=== PATIENT | male | born 1955 | race Caucasian/White ===

== ENCOUNTER 2021-02-17 14:39 | Inpatient (IN) | payer OTHER ==
[~2021-02-17] VITALS: Ht 172.7 cm; Wt 72.6 kg
[~2021-02-17 14:39] MED LIST: AMOX500C2 PO; ASPI-1005 PO; ATOR40TA69 PO; CLOP75TA14 PO; LEVO500T90 PO; LISI5TAB21 PO; METF-444 PO
[2021-02-17 14:45] VITALS: BP 162/86
[2021-02-17] MEDS ORDERED: CLINDAMYCIN IVPB 600MG/50ML 50 ML IV SCH (15:00)
[2021-02-17] MEDS ORDERED: CLINDAMYCIN IVPB 600MG/50ML 50 ML IV ONE (15:09)
[2021-02-17 17:01] LABS: BASOPHILS % (AUTO) 0.3 % (0.0-5.0); EOSINOPHILS % (AUTO) 0.3 % (0.0-8.0); HEMATOCRIT 36.1 % (42-54); LYMPHOCYTES % (AUTO) 5.4 % (21.0-51.0); MEAN CORPUSCULAR HEMOGLOBIN 28.1 pg (27.0-33.0); MEAN CORPUSCULAR VOLUME 90.7 fL (79-99); NEUTROPHILS % (AUTO) 91.1 % (40.0-77.0); RED BLOOD CELL COUNT(AUTO) 3.98 MIL/uL (4.50-6.20); RED CELL DISTRIBUTION WIDTH 13.2 % (11.0-15.5); WHITE BLOOD COUNT (AUTO) 20.1 K/uL (4.8-10.8)
[2021-02-17 17:08] LABS: PLATELET COUNT (AUTO) 813 K/uL (130-400)
[2021-02-17 17:12] LABS: CREATININE 1.1 mg/dL (0.5-1.5); POTASSIUM 5.1 mmol/L (3.5-5.1)
[2021-02-17] MEDS ORDERED: 0.9%NACL 1000ML 1,000 ML IV ONE ×2 (17:14→17:30)
[2021-02-17 17:21] LABS: ALBUMIN 1.8 g/dL (3.5-5.0); BILIRUBIN,TOTAL 0.4 mg/dL (0.2-1.0); TOTAL PROTEIN, SERUM 8.6 g/dL (6.0-8.3)
[2021-02-17 17:28] LABS: CRP QUANTITATIVE 227.2 mg/L (0.00-9.0)
[2021-02-17 17:52] LABS: APPEARANCE,URINE TURBID (CLEAR); BILIRUBIN,URINE SMALL (NEGATIVE); COLOR,URINE YELLOW (YELLOW); GLUCOSE, URINE (UA) 100 mg/dL (NEGATIVE); KETONES,URINE 15 mg/dL (NEGATIVE); LEUKOCYTE ESTERASE ,URINE LARGE (NEGATIVE); NITRATE,URINE POSITIVE (NEGATIVE); OCCULT BLOOD,URINE LARGE (NEGATIVE); PH,URINE 6.5 (5.0-8.0); PROTEIN,URINE >=300 mg/dL (NEGATIVE); UROBILINOGEN,URINE 0.2 mg/dL (0.2-1.0)
[2021-02-17 17:55] LABS: BACTERIA,URINE Many /HPF (None Seen); MUCUS,URINE Rare LPF (None Seen); SQUAMOUS EPITHELIAL CELL,UR Rare /HPF (0-2); WBC,URINE >100 /HPF (0-1)
[2021-02-17] MEDS ORDERED: CEFTRIAXONE 1G VIAL IVP ONE (18:00)
[2021-02-17 18:40] VITALS: BP 12/83
[2021-02-17] MEDS ORDERED: LACTATED RINGERS 1000ML 1,000 ML IV SCH (19:30)
[2021-02-17] MEDS ORDERED: LACTATED RINGERS 1000ML 2,052 ML IV ONE (19:30)
[2021-02-17] MEDS ORDERED: VANCOMYCIN PROTOCOL PER PHARMACY IV PRN (19:30)
[2021-02-17] MEDS ORDERED: VANCOMYCIN 1.5GM/NS 250ML IV ONE ×2 (20:00)
[2021-02-17] MEDS ORDERED: 0.9%NACL 50ML 50 ML IV ONE (20:42)
[2021-02-17] MEDS: CEFEPIME HCL 2 GM VIAL IVP SCH (20:45)
[2021-02-17] MEDS: CARVEDILOL 3.125 MG TABLET PO SCH (21:00)
[2021-02-17] MEDS: ATORVASTATIN 40 MG TABLET PO SCH (21:00)
[2021-02-17] MEDS ORDERED: INSULIN HUMULIN R 100 UNIT/ML 3ML SQ SCH (21:00)
[2021-02-17 21:07] LABS: INR 1.29 (0.85-1.15); PROTHROMBIN TIME 13.7 SEC (9.6-11.6)
[2021-02-17 21:09] LABS: PARTIAL THROMBOPLASTIN TIME 28.2 SEC (26.3-35.5)
[2021-02-18] VITALS (10 sets, daily range): BP systolic 106–139; BP diastolic 57–88
[2021-02-18] MEDS ORDERED: GLUCAGON 1MG KIT 1 MG ML IM PRN (02:00)
[2021-02-18] MEDS ORDERED: DEXTROSE 50%-WATER 50 ML DISP.SYRIN IV PRN (02:00)
[2021-02-18 06:37] LABS: BASOPHILS % (AUTO) 0.3 % (0.0-5.0); EOSINOPHILS % (AUTO) 0.2 % (0.0-8.0); HEMATOCRIT 31.3 % (42-54); LYMPHOCYTES % (AUTO) 9.3 % (21.0-51.0); MEAN CORPUSCULAR HEMOGLOBIN 28.4 pg (27.0-33.0); MEAN CORPUSCULAR HGB CONC 30.4 g/dL (32.0-36.0); MEAN CORPUSCULAR VOLUME 93.4 fL (79-99); MONOCYTES % (AUTO) 4.2 % (3.0-13.0); NEUTROPHILS % (AUTO) 85.2 % (40.0-77.0); PLATELET COUNT (AUTO) 685 K/uL (130-400); RED BLOOD CELL COUNT(AUTO) 3.35 MIL/uL (4.50-6.20); RED CELL DISTRIBUTION WIDTH 13.4 % (11.0-15.5); WHITE BLOOD COUNT (AUTO) 13.2 K/uL (4.8-10.8)
[2021-02-18 07:10] LABS: MAGNESIUM 2.3 mg/dL (1.80-2.40); PHOSPHORUS 3.9 mg/dL (2.5-4.9); POTASSIUM 4.4 mmol/L (3.5-5.1)
[2021-02-18] MEDS: INSULIN R PO SS1/2 SQ SCH ×5 (07:30→20:16)
[2021-02-18] MEDS: CEFEPIME HCL 2 GM VIAL IVP SCH (07:30)
[2021-02-18 07:37] LABS: HEMOGLOBIN A1C 8.2 % (4.0-6.0)
[2021-02-18] MEDS: 0.9% NACL 250ML 250 ML IV SCH ×2 (09:00→20:16)
[2021-02-18] MEDS: FAMOTIDINE 20MG TAB PO SCH (09:00)
[2021-02-18] MEDS ORDERED: LISINOPRIL 10 MG TABLET PO SCH (09:00)
[2021-02-18] MEDS: CARVEDILOL 3.125 MG TABLET PO SCH (09:00)
[2021-02-18] MEDS: VANCOMYCIN KIT 1 GM/250 ML IV.KIT IV SCH ×2 (09:00→20:16)
[2021-02-18 12:05] LABS: HEMATOCRIT 34.4 % (42-54); MEAN CORPUSCULAR HEMOGLOBIN 28.7 pg (27.0-33.0); MEAN CORPUSCULAR HGB CONC 30.2 g/dL (32.0-36.0); MEAN CORPUSCULAR VOLUME 94.8 fL (79-99); PLATELET COUNT (AUTO) 651 K/uL (130-400); RED BLOOD CELL COUNT(AUTO) 3.63 MIL/uL (4.50-6.20); RED CELL DISTRIBUTION WIDTH 13.5 % (11.0-15.5); WHITE BLOOD COUNT (AUTO) 10.9 K/uL (4.8-10.8)
[2021-02-18 12:27] LABS: EOSINOPHILS % (MANUAL) 3 % (1-6); LYMPHOCYTES % (MANUAL) 10 % (22-44); MAN.DIFF COMMENT-IMPRESSION MANUAL DIFFERENTIAL; MONOCYTES % (MANUAL) 6 % (2-9); PLATELET MORPHOLOGY COMMENT MARKED INCREASE; SEGMENTED NEUTROPHILS % 81 % (40-70)
[2021-02-18] MEDS ORDERED: INSULIN GLARGINE 100 UNITS/ML 10 ML VIAL SQ SCH (12:30)
[2021-02-18 13:11] LABS: ERYTHROCYTE SEDIMENTATION RATE 136 MM/HR (0-20)
[2021-02-18] MEDS: LACTATED RINGERS 1000ML 1,000 ML IV SCH (14:12)
[2021-02-18 15:44] LABS: CREATININE 0.6 mg/dL (0.5-1.5); POTASSIUM 4.2 mmol/L (3.5-5.1)
[2021-02-18 15:44] LABS: ABG BASE EXCESS 4.6 mmol/L (-2.0-3.0); ABG HCO3 28.5 mmol/L (21.0-28.0); ABG OXYGEN SATURATION 97.7 % (95.0-99.0); ABG PCO2 40 mmHg (35-48)
[2021-02-18 15:49] LABS: ALBUMIN 0.9 g/dL (3.5-5.0); BILIRUBIN,TOTAL 0.2 mg/dL (0.2-1.0); TOTAL PROTEIN, SERUM 4.5 g/dL (6.0-8.3)
[2021-02-18] MEDS ORDERED: PANTOPRAZOLE 40 MG/VIAL IVP SCH (16:00)
[2021-02-18] MEDS ORDERED: THIAMINE HCL 100 MG/ML 2ML VIAL IVP SCH (16:00)
[2021-02-18] MEDS ORDERED: FOLIC ACID 1 MG TABLET PO SCH (16:00)
[2021-02-18] MEDS: DOXYCYCLINE 100MG+NS 250ML IV SCH (16:04)
[2021-02-18] MEDS: MEROPENEM 1 GM VIAL IVP SCH (16:04)
[2021-02-18] MEDS: 0.9% NACL 250ML IVPB SCH (16:05)
[2021-02-18] MEDS: ATORVASTATIN 40 MG TABLET PO SCH (20:16)
[2021-02-18 21:26] LABS: APPEARANCE BODY FLUID TURBID (CLEAR); COLOR,BODY FLUID DARK YELLOW (LT YELLOW); SPECIMENTYPE,BODY FLUID ASPIRATE
[2021-02-18 21:27] LABS: BODY FLUID WBC 157500 /cu. mm.; TOTAL VOLUME,BODY FLUID 7 mL
[2021-02-18 21:28] LABS: BODY FLUID RBC 5250 /cu. mm.
[2021-02-19] VITALS (21 sets, daily range): BP systolic 120–174; BP diastolic 61–92
[2021-02-19] MEDS: MEROPENEM 1 GM VIAL IVP SCH ×3 (00:36→16:23)
[2021-02-19] MEDS: LACTATED RINGERS 1000ML 1,000 ML IV SCH ×2 (00:37→13:03)
[2021-02-19 02:11] LABS: CRYSTALS, SYNOVIAL FLUID SEE SEPARATE REPORT
[2021-02-19] MEDS: DOXYCYCLINE 100MG+NS 250ML IV SCH ×2 (03:13→16:23)
[2021-02-19] MEDS: 0.9% NACL 250ML IVPB SCH ×2 (03:14→16:23)
[2021-02-19 03:47] LABS: HEMATOCRIT 27.3 % (42-54); MEAN CORPUSCULAR HEMOGLOBIN 28.1 pg (27.0-33.0); MEAN CORPUSCULAR HGB CONC 30.4 g/dL (32.0-36.0); MEAN CORPUSCULAR VOLUME 92.5 fL (79-99); RED BLOOD CELL COUNT(AUTO) 2.95 MIL/uL (4.50-6.20); RED CELL DISTRIBUTION WIDTH 13.7 % (11.0-15.5); WHITE BLOOD COUNT (AUTO) 8.4 K/uL (4.8-10.8)
[2021-02-19 03:58] LABS: CREATININE 0.9 mg/dL (0.5-1.5); POTASSIUM 3.6 mmol/L (3.5-5.1)
[2021-02-19] MEDS: INSULIN R PO SS1/2 SQ SCH ×4 (06:03→20:28)
[2021-02-19] MEDS: VANCOMYCIN KIT 1 GM/250 ML IV.KIT IV SCH ×2 (08:22→20:27)
[2021-02-19] MEDS: 0.9% NACL 250ML 250 ML IV SCH ×2 (08:22→20:27)
[2021-02-19] MEDS: FAMOTIDINE 20MG TAB PO SCH (08:23)
[2021-02-19] MEDS: PANTOPRAZOLE 40 MG/VIAL IVP SCH (08:23)
[2021-02-19] MEDS ORDERED: LISINOPRIL 10 MG TABLET PO SCH (12:30)
[2021-02-19] MEDS: LISINOPRIL 10 MG TABLET PO SCH (13:02)
[2021-02-19] MEDS ORDERED: AMLODIPINE 5 MG TAB PO ONE (17:00)
[2021-02-19] MEDS ORDERED: AMLODIPINE 5 MG TAB ONE (17:22)
[2021-02-19] MEDS: HYDRALAZINE 20MG/ML VIAL IV PRN (18:18)
[2021-02-19] MEDS: ATORVASTATIN 40 MG TABLET PO SCH (20:27)
[2021-02-19] MEDS: BALSAM PERU/CASTOR OIL 60 GM TUBE TP SCH (20:28)
[2021-02-20] VITALS (25 sets, daily range): BP systolic 114–161; BP diastolic 67–87
[2021-02-20] MEDS: MEROPENEM 1 GM VIAL IVP SCH ×2 (01:22→05:36)
[2021-02-20 03:44] LABS: HEMATOCRIT 28.2 % (42-54); MEAN CORPUSCULAR HEMOGLOBIN 28.7 pg (27.0-33.0); MEAN CORPUSCULAR HGB CONC 31.2 g/dL (32.0-36.0); MEAN CORPUSCULAR VOLUME 91.9 fL (79-99); RED BLOOD CELL COUNT(AUTO) 3.07 MIL/uL (4.50-6.20); RED CELL DISTRIBUTION WIDTH 13.4 % (11.0-15.5); WHITE BLOOD COUNT (AUTO) 8.5 K/uL (4.8-10.8)
[2021-02-20 03:47] LABS: CREATININE 0.7 mg/dL (0.5-1.5); POTASSIUM 3.5 mmol/L (3.5-5.1)
[2021-02-20] MEDS: DOXYCYCLINE 100MG+NS 250ML IV SCH ×2 (04:00→21:02)
[2021-02-20] MEDS: 0.9% NACL 250ML IVPB SCH ×2 (04:01→16:00)
[2021-02-20] MEDS: INSULIN R PO SS1/2 SQ SCH ×3 (05:37→21:11)
[2021-02-20] MEDS: BALSAM PERU/CASTOR OIL 60 GM TUBE TP SCH ×3 (09:00→21:04)
[2021-02-20] MEDS: LISINOPRIL 10 MG TABLET PO SCH (10:54)
[2021-02-20] MEDS: PANTOPRAZOLE 40 MG/VIAL IVP SCH (10:54)
[2021-02-20] MEDS: VANCOMYCIN KIT 1 GM/250 ML IV.KIT IV SCH (10:54)
[2021-02-20] MEDS: 0.9% NACL 250ML 250 ML IV SCH ×2 (10:54→21:02)
[2021-02-20] MEDS: FAMOTIDINE 20MG TAB PO SCH (10:54)
[2021-02-20] MEDS ORDERED: 0.9%NACL 1000ML 1,000 ML IV ONE (13:25)
[2021-02-20] MEDS ORDERED: CEFTRIAXONE 1G VIAL ONE (13:40)
[2021-02-20] MEDS: CEFTRIAXONE 2GM VIAL IVP SCH (13:50)
[2021-02-20] MEDS ORDERED: CEFAZOLIN SODIUM 1 GM VIAL ONE (15:25)
[2021-02-20] MEDS ORDERED: SUCCINYLCHOLINE CHLORIDE 20 MG/ML 10 ML VIAL ONE (15:32)
[2021-02-20] MEDS ORDERED: LIDOCAINE PF 100MG/5ML (2%) SYRINGE 5ML ONE (15:32)
[2021-02-20] MEDS ORDERED: DEXAMETHASONE SOD PHOSPHATE 10MG/ML 1ML VIAL ONE (15:33)
[2021-02-20] MEDS ORDERED: NEOSTIGMINE 5MG/5ML SYR IV ONE (15:33)
[2021-02-20] MEDS ORDERED: ROCURONIUM 10MG/1ML SYR 10 MG/ML ML ONE (15:33)
[2021-02-20] MEDS ORDERED: GLYCOPYRROLATE 1 MG/5 ML SYRINGE ONE (15:33)
[2021-02-20] MEDS ORDERED: PROPOFOL 10 MG/ML 20ML VIAL IV ONE (15:33)
[2021-02-20] MEDS ORDERED: ONDANSETRON 4MG INJ ONE (15:33)
[2021-02-20] MEDS ORDERED: MIDAZOLAM HCL 1 MG/ML 2ML VIAL ONE (15:33)
[2021-02-20] MEDS ORDERED: FENTANYL CITRATE PF 50 MCG/1 ML 2ML VIAL ONE ×2 (15:34→16:27)
[2021-02-20] MEDS ORDERED: MEPERIDINE-PF 25 MG/ML SYG ONE (16:28)
[2021-02-20] MEDS ORDERED: FENTANYL CITRATE PF 50 MCG/1 ML 5ML AMP IV ONE (16:29)
[2021-02-20] MEDS: ATORVASTATIN 40 MG TABLET PO SCH (21:05)
[2021-02-21] VITALS (16 sets, daily range): BP systolic 89–160; BP diastolic 47–87
[2021-02-21] MEDS: BALSAM PERU/CASTOR OIL 60 GM TUBE TP SCH ×3 (06:41→22:00)
[2021-02-21] MEDS: INSULIN R PO SS1/2 SQ SCH ×4 (06:42→20:57)
[2021-02-21 06:51] LABS: BASOPHILS % (AUTO) 0.2 % (0.0-5.0); HEMATOCRIT 30.6 % (42-54); LYMPHOCYTES % (AUTO) 6.7 % (21.0-51.0); MEAN CORPUSCULAR HEMOGLOBIN 27.8 pg (27.0-33.0); MEAN CORPUSCULAR HGB CONC 30.4 g/dL (32.0-36.0); MEAN CORPUSCULAR VOLUME 91.3 fL (79-99); MONOCYTES % (AUTO) 1.3 % (3.0-13.0); NEUTROPHILS % (AUTO) 91.3 % (40.0-77.0); PLATELET COUNT (AUTO) 501 K/uL (130-400); RED BLOOD CELL COUNT(AUTO) 3.35 MIL/uL (4.50-6.20); RED CELL DISTRIBUTION WIDTH 13.2 % (11.0-15.5); WHITE BLOOD COUNT (AUTO) 9.9 K/uL (4.8-10.8)
[2021-02-21 07:10] LABS: CREATININE 0.6 mg/dL (0.5-1.5); MAGNESIUM 1.9 mg/dL (1.80-2.40); POTASSIUM 4.1 mmol/L (3.5-5.1)
[2021-02-21] MEDS: 0.9% NACL 250ML 250 ML IV SCH ×4 (09:00→22:29)
[2021-02-21] MEDS ORDERED: DOXYCYCLINE 100MG+NS 250ML IV SCH (09:00)
[2021-02-21] MEDS: FAMOTIDINE 20MG TAB PO SCH (10:24)
[2021-02-21] MEDS: DOXYCYCLINE 100MG+NS 250ML IV SCH ×2 (10:25→20:25)
[2021-02-21] MEDS: PANTOPRAZOLE 40 MG/VIAL IVP SCH (10:25)
[2021-02-21] MEDS: LISINOPRIL 10 MG TABLET PO SCH (10:25)
[2021-02-21] MEDS: CEFTRIAXONE 2GM VIAL IVP SCH (12:30)
[2021-02-21] MEDS ORDERED: CEFTRIAXONE 1G VIAL ONE (16:15)
[2021-02-21] MEDS: ATORVASTATIN 40 MG TABLET PO SCH (20:27)
[2021-02-21 21:09] LABS: BASOPHILS % (AUTO) 0.3 % (0.0-5.0); EOSINOPHILS % (AUTO) 0.2 % (0.0-8.0); LYMPHOCYTES % (AUTO) 22.6 % (21.0-51.0); MEAN CORPUSCULAR HEMOGLOBIN 28.4 pg (27.0-33.0); MEAN CORPUSCULAR HGB CONC 29.4 g/dL (32.0-36.0); MEAN CORPUSCULAR VOLUME 96.7 fL (79-99); MONOCYTES % (AUTO) 2.6 % (3.0-13.0); NEUTROPHILS % (AUTO) 68.8 % (40.0-77.0); NUCLEATED RED BLOOD CELLS 0.2 % (0.0-0.19); PLATELET COUNT (AUTO) 543 K/uL (130-400); RED BLOOD CELL COUNT(AUTO) 3.31 MIL/uL (4.50-6.20); RED CELL DISTRIBUTION WIDTH 13.4 % (11.0-15.5); WHITE BLOOD COUNT (AUTO) 15.4 K/uL (4.8-10.8)
[2021-02-21 21:20] LABS: ALBUMIN 1.3 g/dL (3.5-5.0); BILIRUBIN,TOTAL 0.2 mg/dL (0.2-1.0); CREATININE 0.9 mg/dL (0.5-1.5); POTASSIUM 3.6 mmol/L (3.5-5.1); TOTAL PROTEIN, SERUM 6.1 g/dL (6.0-8.3)
[2021-02-21 21:21] LABS: INR 1.27 (0.85-1.15); PROTHROMBIN TIME 13.5 SEC (9.6-11.6)
[2021-02-21 21:22] LABS: PARTIAL THROMBOPLASTIN TIME 28.8 SEC (26.3-35.5)
[2021-02-21] MEDS ORDERED: FENTANYL 2500MCG+NS 250ML 250 ML IV SCH (22:00)
[2021-02-21] MEDS ORDERED: PROPOFOL 1000 MG/100 ML 100 ML IV ONE (22:18)
[2021-02-21 22:37] LABS: MAGNESIUM 2.4 mg/dL (1.80-2.40)
[2021-02-21 22:55] LABS: ABG BASE EXCESS -0.1 mmol/L (-2.0-3.0); ABG OXYGEN SATURATION 99.5 % (95.0-99.0); ABG PCO2 42 mmHg (35-48)
[2021-02-22] VITALS (80 sets, daily range): BP systolic 73–156; BP diastolic 33–85
[2021-02-22 04:16] LABS: CREATININE 0.7 mg/dL (0.5-1.5); MAGNESIUM 1.9 mg/dL (1.80-2.40); PHOSPHORUS 2.4 mg/dL (2.5-4.9); POTASSIUM 3.1 mmol/L (3.5-5.1)
[2021-02-22] MEDS: MAGNESIUM 2GM PREMIX 50ML 50 ML IV PRN (05:56)
[2021-02-22] MEDS: BALSAM PERU/CASTOR OIL 60 GM TUBE TP SCH ×3 (06:19→23:15)
[2021-02-22] MEDS: INSULIN R PO SS1/2 SQ SCH ×4 (06:36→23:22)
[2021-02-22] MEDS: FAMOTIDINE 20MG TAB PO SCH (09:00)
[2021-02-22] MEDS: LISINOPRIL 10 MG TABLET PO SCH (09:00)
[2021-02-22] MEDS: PANTOPRAZOLE 40 MG/VIAL IVP SCH (09:50)
[2021-02-22] MEDS: DOXYCYCLINE 100MG+NS 250ML IV SCH ×2 (09:50→20:19)
[2021-02-22] MEDS: 0.9% NACL 250ML 250 ML IV SCH ×4 (09:51→20:20)
[2021-02-22] MEDS: 1/2 NS 1000ML 1,000 ML IV SCH (09:55)
[2021-02-22 10:03] LABS: ABG BASE EXCESS 5.8 mmol/L (-2.0-3.0); ABG HCO3 30.8 mmol/L (21.0-28.0); ABG OXYGEN SATURATION 95.8 % (95.0-99.0); ABG PCO2 47 mmHg (35-48)
[2021-02-22] MEDS: POTASSIUM CHLORIDE 20MEQ/100ML 100 ML IV PRN ×2 (10:12→14:35)
[2021-02-22] MEDS: PROPOFOL 1000 MG/100 ML IV PRN ×2 (10:37→14:36)
[2021-02-22] MEDS ORDERED: ENOXAPARIN SODIUM 40 MG/0.4 ML SYRINGE SQ SCH (11:00)
[2021-02-22] MEDS ORDERED: NOREPINEPHRIN 4MG/NS 250ML 250 ML IV SCH (13:00)
[2021-02-22] MEDS ORDERED: CEFTRIAXONE 2GM VIAL ONE (14:32)
[2021-02-22] MEDS: CEFTRIAXONE 2GM VIAL IVP SCH (14:33)
[2021-02-22] MEDS ORDERED: DEXMEDETOMIDINE 400MCG/NS100ML IV SCH (16:00)
[2021-02-22] MEDS: ATORVASTATIN 40 MG TABLET PO SCH (20:19)
[2021-02-22] MEDS: ENOXAPARIN SODIUM 30 MG/0.3 ML SQ SCH (23:15)
[2021-02-23] VITALS (65 sets, daily range): BP systolic 72–174; BP diastolic 40–102
[2021-02-23] MEDS: 1/2 NS 1000ML 1,000 ML IV SCH (02:10)
[2021-02-23 03:38] LABS: BASOPHILS % (AUTO) 0.4 % (0.0-5.0); EOSINOPHILS % (AUTO) 0.9 % (0.0-8.0); LYMPHOCYTES % (AUTO) 14.5 % (21.0-51.0); MEAN CORPUSCULAR HEMOGLOBIN 28.6 pg (27.0-33.0); MEAN CORPUSCULAR HGB CONC 30.7 g/dL (32.0-36.0); MEAN CORPUSCULAR VOLUME 93.2 fL (79-99); MONOCYTES % (AUTO) 4.5 % (3.0-13.0); NEUTROPHILS % (AUTO) 79.1 % (40.0-77.0); PLATELET COUNT (AUTO) 466 K/uL (130-400); RED BLOOD CELL COUNT(AUTO) 3.11 MIL/uL (4.50-6.20); RED CELL DISTRIBUTION WIDTH 13.8 % (11.0-15.5); WHITE BLOOD COUNT (AUTO) 14.1 K/uL (4.8-10.8)
[2021-02-23 04:02] LABS: ALBUMIN 1.3 g/dL (3.5-5.0); BILIRUBIN,TOTAL 0.3 mg/dL (0.2-1.0); CREATININE 0.8 mg/dL (0.5-1.5); MAGNESIUM 2.2 mg/dL (1.80-2.40); PHOSPHORUS 2.4 mg/dL (2.5-4.9); POTASSIUM 3.7 mmol/L (3.5-5.1); TOTAL PROTEIN, SERUM 5.6 g/dL (6.0-8.3)
[2021-02-23] MEDS: BALSAM PERU/CASTOR OIL 60 GM TUBE TP SCH ×3 (06:00→21:44)
[2021-02-23 06:07] LABS: ABG BASE EXCESS 2.5 mmol/L (-2.0-3.0); ABG HCO3 25.5 mmol/L (21.0-28.0); ABG OXYGEN SATURATION 96.5 % (95.0-99.0); ABG PCO2 34 mmHg (35-48)
[2021-02-23] MEDS: INSULIN R PO SS1/2 SQ SCH ×4 (06:41→22:01)
[2021-02-23] MEDS: POTASSIUM CHLORIDE 10% ELIXIR 20 MEQ/15 ML UDCUP PO PRN ×2 (06:47→08:51)
[2021-02-23] MEDS: 0.9% NACL 250ML 250 ML IV SCH ×2 (08:14→21:43)
[2021-02-23] MEDS: DOXYCYCLINE 100MG+NS 250ML IV SCH ×2 (08:14→21:43)
[2021-02-23] MEDS: PANTOPRAZOLE 40 MG/VIAL IVP SCH (08:14)
[2021-02-23] MEDS: FAMOTIDINE 20MG TAB PO SCH (08:15)
[2021-02-23] MEDS: ENOXAPARIN SODIUM 30 MG/0.3 ML SQ SCH (11:15)
[2021-02-23] MEDS: LACTATED RINGERS 1000ML 1,000 ML IV SCH (11:16)
[2021-02-23] MEDS: ASPIRIN 81MG CHEW TAB PO SCH (12:00)
[2021-02-23] MEDS ORDERED: CEFTRIAXONE 2GM VIAL IVP SCH (14:30)
[2021-02-23 17:06] LABS: ABG BASE EXCESS -5.6 mmol/L (-2.0-3.0); ABG OXYGEN SATURATION 61.2 % (95.0-99.0); ABG PCO2 53 mmHg (35-48)
[2021-02-23 17:11] LABS: BASOPHILS % (AUTO) 0.3 % (0.0-5.0); EOSINOPHILS % (AUTO) 0.3 % (0.0-8.0); HEMATOCRIT 32.5 % (42-54); LYMPHOCYTES % (AUTO) 16.5 % (21.0-51.0); MEAN CORPUSCULAR HEMOGLOBIN 28.1 pg (27.0-33.0); MEAN CORPUSCULAR HGB CONC 28.9 g/dL (32.0-36.0); MONOCYTES % (AUTO) 3.4 % (3.0-13.0); NEUTROPHILS % (AUTO) 77.1 % (40.0-77.0); NUCLEATED RED BLOOD CELLS 0.1 % (0.0-0.19); PLATELET COUNT (AUTO) 460 K/uL (130-400); RED BLOOD CELL COUNT(AUTO) 3.35 MIL/uL (4.50-6.20); RED CELL DISTRIBUTION WIDTH 14.1 % (11.0-15.5); WHITE BLOOD COUNT (AUTO) 26.7 K/uL (4.8-10.8)
[2021-02-23] MEDS ORDERED: AMIODARONE 900MG VIAL 900 MG in DEXTROSE 5%-WATER 500 ML IV SCH (17:30)
[2021-02-23] MEDS ORDERED: CLOPIDOGREL 75MG TAB PO SCH (17:30)
[2021-02-23] MEDS: PROPOFOL 1000 MG/100 ML IV PRN (17:34)
[2021-02-23 17:36] LABS: ALBUMIN 1.4 g/dL (3.5-5.0); BILIRUBIN,TOTAL 0.2 mg/dL (0.2-1.0); CREATININE 0.9 mg/dL (0.5-1.5); POTASSIUM 4.9 mmol/L (3.5-5.1); TOTAL PROTEIN, SERUM 6.2 g/dL (6.0-8.3)
[2021-02-23] MEDS: AMIODARONE 900MG VIAL 900 MG in DEXTROSE 5%-WATER 500 ML IV SCH (18:43)
[2021-02-23] MEDS: ATORVASTATIN 40 MG TABLET PO SCH (21:43)
[2021-02-24] VITALS (52 sets, daily range): BP systolic 106–165; BP diastolic 49–78
[2021-02-24] MEDS: ENOXAPARIN SODIUM 30 MG/0.3 ML SQ SCH ×3 (01:10→23:20)
[2021-02-24] MEDS: LACTATED RINGERS 1000ML 1,000 ML IV SCH ×2 (01:10→11:27)
[2021-02-24 03:36] LABS: BASOPHILS % (AUTO) 0.3 % (0.0-5.0); EOSINOPHILS % (AUTO) 0.5 % (0.0-8.0); HEMATOCRIT 26.5 % (42-54); LYMPHOCYTES % (AUTO) 11.1 % (21.0-51.0); MEAN CORPUSCULAR HEMOGLOBIN 28.2 pg (27.0-33.0); MEAN CORPUSCULAR HGB CONC 29.8 g/dL (32.0-36.0); MEAN CORPUSCULAR VOLUME 94.6 fL (79-99); MONOCYTES % (AUTO) 3.5 % (3.0-13.0); PLATELET COUNT (AUTO) 475 K/uL (130-400); RED CELL DISTRIBUTION WIDTH 14.1 % (11.0-15.5); WHITE BLOOD COUNT (AUTO) 21.9 K/uL (4.8-10.8)
[2021-02-24 04:18] LABS: ALBUMIN 1.2 g/dL (3.5-5.0); BILIRUBIN,TOTAL 0.4 mg/dL (0.2-1.0); CREATININE 1.1 mg/dL (0.5-1.5); MAGNESIUM 2.1 mg/dL (1.80-2.40); PHOSPHORUS 2.9 mg/dL (2.5-4.9); POTASSIUM 4.3 mmol/L (3.5-5.1); TOTAL PROTEIN, SERUM 5.4 g/dL (6.0-8.3)
[2021-02-24] MEDS: BALSAM PERU/CASTOR OIL 60 GM TUBE TP SCH ×3 (05:01→22:23)
[2021-02-24] MEDS: INSULIN R PO SS1/2 SQ SCH ×4 (06:15→20:38)
[2021-02-24] MEDS: AMIODARONE 900MG VIAL 900 MG in DEXTROSE 5%-WATER 500 ML IV SCH (08:07)
[2021-02-24] MEDS: FAMOTIDINE 20MG VIAL IV SCH (09:12)
[2021-02-24] MEDS: PANTOPRAZOLE 40 MG/VIAL IVP SCH (09:12)
[2021-02-24] MEDS: DOXYCYCLINE 100MG+NS 250ML IV SCH ×2 (09:12→20:35)
[2021-02-24] MEDS: 0.9% NACL 250ML 250 ML IV SCH ×2 (09:12→20:35)
[2021-02-24] MEDS: PROPOFOL 1000 MG/100 ML IV PRN (09:20)
[2021-02-24] MEDS ORDERED: ACETAMINOPHEN 325 MG/10.15ML UDCUP PO PRN (10:30)
[2021-02-24] MEDS: CEFTRIAXONE 2GM VIAL IVP SCH ×2 (11:26→20:35)
[2021-02-24] MEDS: HYDROCORTISONE SOD SUCCINATE 100 MG/2 ML VIAL IV SCH ×3 (11:26→23:21)
[2021-02-24] MEDS: ASPIRIN 81MG CHEW TAB PO SCH (11:26)
[2021-02-24 11:37] LABS: ABG BASE EXCESS 2.6 mmol/L (-2.0-3.0); ABG HCO3 24.9 mmol/L (21.0-28.0); ABG OXYGEN SATURATION 98.7 % (95.0-99.0); ABG PCO2 30 mmHg (35-48)
[2021-02-24] MEDS: ATORVASTATIN 40 MG TABLET PO SCH (20:39)
[2021-02-25] VITALS (48 sets, daily range): BP systolic 135–193; BP diastolic 62–94
[2021-02-25] MEDS: LACTATED RINGERS 1000ML 1,000 ML IV SCH ×2 (02:09→15:58)
[2021-02-25 03:35] LABS: BASOPHILS % (AUTO) 0.2 % (0.0-5.0); EOSINOPHILS % (AUTO) 0.1 % (0.0-8.0); HEMATOCRIT 24.4 % (42-54); LYMPHOCYTES % (AUTO) 6.3 % (21.0-51.0); MEAN CORPUSCULAR HEMOGLOBIN 27.9 pg (27.0-33.0); MEAN CORPUSCULAR HGB CONC 30.3 g/dL (32.0-36.0); MEAN CORPUSCULAR VOLUME 92.1 fL (79-99); MONOCYTES % (AUTO) 2.4 % (3.0-13.0); NEUTROPHILS % (AUTO) 89.8 % (40.0-77.0); PLATELET COUNT (AUTO) 410 K/uL (130-400); RED BLOOD CELL COUNT(AUTO) 2.65 MIL/uL (4.50-6.20); RED CELL DISTRIBUTION WIDTH 14.3 % (11.0-15.5); WHITE BLOOD COUNT (AUTO) 21.3 K/uL (4.8-10.8)
[2021-02-25 03:50] LABS: ABG BASE EXCESS 0.5 mmol/L (-2.0-3.0); ABG HCO3 23.1 mmol/L (21.0-28.0); ABG PCO2 29 mmHg (35-48)
[2021-02-25 03:51] LABS: ALBUMIN 1.1 g/dL (3.5-5.0); BILIRUBIN,TOTAL 0.3 mg/dL (0.2-1.0); CREATININE 1.1 mg/dL (0.5-1.5); POTASSIUM 3.9 mmol/L (3.5-5.1); TOTAL PROTEIN, SERUM 5.5 g/dL (6.0-8.3)
[2021-02-25] MEDS: PROPOFOL 1000 MG/100 ML IV PRN (03:55)
[2021-02-25] MEDS: BALSAM PERU/CASTOR OIL 60 GM TUBE TP SCH ×3 (05:59→21:40)
[2021-02-25] MEDS: HYDROCORTISONE SOD SUCCINATE 100 MG/2 ML VIAL IV SCH ×3 (05:59→17:16)
[2021-02-25] MEDS: INSULIN R PO SS1/2 SQ SCH ×4 (06:09→22:14)
[2021-02-25] MEDS: PANTOPRAZOLE 40 MG/VIAL IVP SCH (08:13)
[2021-02-25] MEDS: DOXYCYCLINE 100MG+NS 250ML IV SCH ×2 (08:13→21:39)
[2021-02-25] MEDS: 0.9% NACL 250ML 250 ML IV SCH ×2 (08:13→21:39)
[2021-02-25] MEDS: ASPIRIN 81MG CHEW TAB PO SCH (08:14)
[2021-02-25] MEDS: FAMOTIDINE 20MG VIAL IV SCH (08:14)
[2021-02-25] MEDS: CEFTRIAXONE 2GM VIAL IVP SCH (08:16)
[2021-02-25] MEDS: AMIODARONE 900MG VIAL 900 MG in DEXTROSE 5%-WATER 500 ML IV SCH (09:13)
[2021-02-25] MEDS: ENOXAPARIN SODIUM 30 MG/0.3 ML SQ SCH (10:25)
[2021-02-25] MEDS ORDERED: ZOSYN 3.375GM+NS 50ML 3.38 GM in 0.9%NACL 50ML 50 ML IV SCH (14:00)
[2021-02-25] MEDS: ZOSYN 3.375GM +NS 50ML IV SCH ×2 (14:14→21:40)
[2021-02-25] MEDS: 0.9%NACL 50ML 50 ML IV SCH ×2 (14:15→21:40)
[2021-02-25] MEDS: ATORVASTATIN 40 MG TABLET PO SCH (21:39)
[2021-02-26] VITALS (36 sets, daily range): BP systolic 107–176; BP diastolic 57–94
[2021-02-26 04:26] LABS: BASOPHILS % (AUTO) 0.1 % (0.0-5.0); EOSINOPHILS % (AUTO) 0.3 % (0.0-8.0); HEMATOCRIT 26.3 % (42-54); LYMPHOCYTES % (AUTO) 7.4 % (21.0-51.0); MEAN CORPUSCULAR HEMOGLOBIN 27.9 pg (27.0-33.0); MEAN CORPUSCULAR HGB CONC 29.3 g/dL (32.0-36.0); MEAN CORPUSCULAR VOLUME 95.3 fL (79-99); MONOCYTES % (AUTO) 3.5 % (3.0-13.0); NEUTROPHILS % (AUTO) 87.4 % (40.0-77.0); PLATELET COUNT (AUTO) 493 K/uL (130-400); RED BLOOD CELL COUNT(AUTO) 2.76 MIL/uL (4.50-6.20); RED CELL DISTRIBUTION WIDTH 14.4 % (11.0-15.5); WHITE BLOOD COUNT (AUTO) 20.5 K/uL (4.8-10.8)
[2021-02-26 04:36] LABS: ALBUMIN 1.2 g/dL (3.5-5.0); BILIRUBIN,TOTAL 0.3 mg/dL (0.2-1.0); POTASSIUM 3.4 mmol/L (3.5-5.1); TOTAL PROTEIN, SERUM 5.9 g/dL (6.0-8.3)
[2021-02-26] MEDS: POTASSIUM CHLORIDE 20MEQ/100ML 100 ML IV PRN (05:04)
[2021-02-26] MEDS: ENOXAPARIN SODIUM 30 MG/0.3 ML SQ SCH ×3 (05:04→23:50)
[2021-02-26] MEDS: LACTATED RINGERS 1000ML 1,000 ML IV SCH ×2 (05:04→10:59)
[2021-02-26] MEDS: HYDROCORTISONE SOD SUCCINATE 100 MG/2 ML VIAL IV SCH ×4 (05:07→21:05)
[2021-02-26] MEDS: ZOSYN 3.375GM +NS 50ML IV SCH ×3 (05:07→21:05)
[2021-02-26] MEDS: 0.9%NACL 50ML 50 ML IV SCH ×3 (05:07→21:05)
[2021-02-26] MEDS: BALSAM PERU/CASTOR OIL 60 GM TUBE TP SCH ×3 (05:08→21:05)
[2021-02-26] MEDS: INSULIN R PO SS1/2 SQ SCH ×4 (05:17→20:59)
[2021-02-26 08:11] LABS: POTASSIUM 3.6 mmol/L (3.5-5.1)
[2021-02-26] MEDS: ASPIRIN 81MG CHEW TAB PO SCH (08:27)
[2021-02-26] MEDS: PANTOPRAZOLE 40 MG/VIAL IVP SCH (08:30)
[2021-02-26] MEDS: FAMOTIDINE 20MG VIAL IV SCH (08:35)
[2021-02-26] MEDS: DOXYCYCLINE 100MG+NS 250ML IV SCH ×2 (08:37→20:48)
[2021-02-26] MEDS: 0.9% NACL 250ML 250 ML IV SCH ×2 (08:37→20:49)
[2021-02-26] MEDS: POTASSIUM CHLORIDE 10% ELIXIR 20 MEQ/15 ML UDCUP PO PRN (09:06)
[2021-02-26] MEDS ORDERED: FUROSEMIDE 20MG VIAL IV SCH ×3 (10:00→14:00)
[2021-02-26] MEDS ORDERED: ALBUMIN (HUMAN) 25% 100 ML IV ONE (10:54)
[2021-02-26] MEDS ORDERED: TAMSULOSIN HCL 0.4 MG CAP.ER.24H ONE (12:36)
[2021-02-26] MEDS ORDERED: TAMSULOSIN HCL 0.4 MG CAP.ER.24H PO SCH (13:00)
[2021-02-26] MEDS ORDERED: ALBUMIN (HUMAN) 25% 50 ML IV SCH (14:00)
[2021-02-26] MEDS: AMIODARONE 900MG VIAL 900 MG in DEXTROSE 5%-WATER 500 ML IV SCH (16:17)
[2021-02-26] MEDS: ALBUMIN (HUMAN) 25% 50 ML IV SCH (20:47)
[2021-02-26] MEDS: FUROSEMIDE 20MG VIAL IV SCH (20:48)
[2021-02-26] MEDS: ATORVASTATIN 40 MG TABLET PO SCH (20:50)
[2021-02-27] VITALS (44 sets, daily range): BP systolic 130–193; BP diastolic 58–107
[2021-02-27] MEDS: FUROSEMIDE 20MG VIAL IV SCH (05:00)
[2021-02-27] MEDS: ZOSYN 3.375GM +NS 50ML IV SCH ×3 (05:02→22:03)
[2021-02-27] MEDS: 0.9%NACL 50ML 50 ML IV SCH ×3 (05:02→22:03)
[2021-02-27] MEDS: ALBUMIN (HUMAN) 25% 50 ML IV SCH (05:02)
[2021-02-27] MEDS: HYDROCORTISONE SOD SUCCINATE 100 MG/2 ML VIAL IV SCH ×3 (05:03→22:03)
[2021-02-27] MEDS: BALSAM PERU/CASTOR OIL 60 GM TUBE TP SCH ×3 (05:05→22:04)
[2021-02-27] MEDS: PANTOPRAZOLE 40 MG/VIAL IVP SCH (07:42)
[2021-02-27] MEDS: DOXYCYCLINE 100MG+NS 250ML IV SCH ×2 (07:42→20:55)
[2021-02-27] MEDS: 0.9% NACL 250ML 250 ML IV SCH ×2 (07:42→20:56)
[2021-02-27] MEDS: FAMOTIDINE 20MG VIAL IV SCH (07:42)
[2021-02-27] MEDS: ASPIRIN 81MG CHEW TAB PO SCH (07:43)
[2021-02-27] MEDS: INSULIN R PO SS1/2 SQ SCH ×2 (07:44→11:44)
[2021-02-27 07:49] LABS: HEMATOCRIT 24.9 % (42-54); MEAN CORPUSCULAR HGB CONC 29.3 g/dL (32.0-36.0); MEAN CORPUSCULAR VOLUME 95.4 fL (79-99); RED BLOOD CELL COUNT(AUTO) 2.61 MIL/uL (4.50-6.20); RED CELL DISTRIBUTION WIDTH 14.2 % (11.0-15.5); WHITE BLOOD COUNT (AUTO) 17.7 K/uL (4.8-10.8)
[2021-02-27 08:01] LABS: CREATININE 1.1 mg/dL (0.5-1.5); POTASSIUM 3.2 mmol/L (3.5-5.1)
[2021-02-27] MEDS: POTASSIUM CHLORIDE 10% ELIXIR 20 MEQ/15 ML UDCUP PO PRN ×3 (08:12→17:20)
[2021-02-27] MEDS: POTASSIUM CHLORIDE 20MEQ/100ML 100 ML IV PRN ×3 (08:15→17:21)
[2021-02-27] MEDS: HYDRALAZINE 20MG/ML VIAL IV PRN ×3 (09:00→22:06)
[2021-02-27] MEDS: AMIODARONE 200 MG TABLET PO SCH (09:49)
[2021-02-27] MEDS ORDERED: AMIODARONE 200 MG TABLET PO SCH (10:00)
[2021-02-27] MEDS: ENOXAPARIN SODIUM 30 MG/0.3 ML SQ SCH ×2 (11:37→22:05)
[2021-02-27] MEDS ORDERED: LACTULOSE 20 GM/30 ML UDCUP PO PRN (15:30)
[2021-02-27] MEDS: INSULIN HUMULIN R 100 UNIT/ML 3ML SQ SCH ×2 (16:45→21:00)
[2021-02-27 17:50] LABS: ABG BASE EXCESS 2.5 mmol/L (-2.0-3.0); ABG HCO3 26.5 mmol/L (21.0-28.0); ABG PCO2 39 mmHg (35-48)
[2021-02-27] MEDS ORDERED: COMPOUND IV MISC 1 EACH IVSOLN MISC PRN (19:30)
[2021-02-27] MEDS: LACTATED RINGERS 1000ML 1,000 ML IV SCH ×2 (20:54→21:55)
[2021-02-27] MEDS: IRON SUCROSE COMPLEX 300 MG in 0.9%NACL 50ML 50 ML IV SCH (20:55)
[2021-02-27] MEDS: ATORVASTATIN 40 MG TABLET PO SCH (20:56)
[2021-02-27] MEDS ORDERED: EPOETIN ALFA-EPBX (NON-ESRD) 10,000 UNIT/ML VIAL SQ SCH (21:00)
[2021-02-28] VITALS (19 sets, daily range): BP systolic 134–180; BP diastolic 59–102
[2021-02-28 03:50] LABS: BASOPHILS % (AUTO) 0.2 % (0.0-5.0); EOSINOPHILS % (AUTO) 0.6 % (0.0-8.0); HEMATOCRIT 27.5 % (42-54); LYMPHOCYTES % (AUTO) 3.9 % (21.0-51.0); MEAN CORPUSCULAR HEMOGLOBIN 28.3 pg (27.0-33.0); MEAN CORPUSCULAR HGB CONC 29.1 g/dL (32.0-36.0); MEAN CORPUSCULAR VOLUME 97.2 fL (79-99); MONOCYTES % (AUTO) 2.9 % (3.0-13.0); NEUTROPHILS % (AUTO) 91.2 % (40.0-77.0); PLATELET COUNT (AUTO) 507 K/uL (130-400); RED BLOOD CELL COUNT(AUTO) 2.83 MIL/uL (4.50-6.20); RED CELL DISTRIBUTION WIDTH 14.3 % (11.0-15.5); WHITE BLOOD COUNT (AUTO) 28.7 K/uL (4.8-10.8)
[2021-02-28 04:02] LABS: % IRON SATURATION 93.2 % (30-44)
[2021-02-28 04:29] LABS: ALBUMIN 1.9 g/dL (3.5-5.0); CREATININE 0.8 mg/dL (0.5-1.5); POTASSIUM 3.4 mmol/L (3.5-5.1)
[2021-02-28] MEDS: ZOSYN 3.375GM +NS 50ML IV SCH ×3 (05:01→21:21)
[2021-02-28] MEDS: 0.9%NACL 50ML 50 ML IV SCH ×3 (05:02→21:23)
[2021-02-28] MEDS: POTASSIUM CHLORIDE 20MEQ/100ML 100 ML IV PRN ×3 (05:02→18:20)
[2021-02-28] MEDS: HYDROCORTISONE SOD SUCCINATE 100 MG/2 ML VIAL IV SCH ×3 (05:02→21:21)
[2021-02-28] MEDS: BALSAM PERU/CASTOR OIL 60 GM TUBE TP SCH ×3 (05:03→21:22)
[2021-02-28] MEDS: INSULIN HUMULIN R 100 UNIT/ML 3ML SQ SCH ×5 (05:30→23:31)
[2021-02-28] MEDS: IRON SUCROSE COMPLEX 300 MG in 0.9%NACL 50ML 50 ML IV SCH (09:00)
[2021-02-28] MEDS: POTASSIUM CHLORIDE 10% ELIXIR 20 MEQ/15 ML UDCUP PO PRN ×2 (10:44→18:19)
[2021-02-28] MEDS: ASPIRIN 81MG CHEW TAB PO SCH (10:45)
[2021-02-28] MEDS: ENOXAPARIN SODIUM 30 MG/0.3 ML SQ SCH ×2 (10:45→21:22)
[2021-02-28] MEDS: DOXYCYCLINE 100MG+NS 250ML IV SCH ×2 (10:46→21:22)
[2021-02-28] MEDS: AMIODARONE 200 MG TABLET PO SCH (10:46)
[2021-02-28] MEDS: PANTOPRAZOLE 40 MG/VIAL IVP SCH (10:46)
[2021-02-28] MEDS: 0.9% NACL 250ML 250 ML IV SCH ×2 (10:46→21:22)
[2021-02-28] MEDS: HYDRALAZINE 20MG/ML VIAL IV PRN (10:47)
[2021-02-28] MEDS: DEXTROSE 5%-WATER 1,000 ML IV SCH (11:04)
[2021-02-28 14:10] LABS: MAGNESIUM 1.7 mg/dL (1.80-2.40); POTASSIUM 3.8 mmol/L (3.5-5.1)
[2021-02-28] MEDS: MAGNESIUM 2GM PREMIX 50ML 50 ML IV PRN ×2 (14:14→15:53)
[2021-02-28 17:57] LABS: MAGNESIUM 2.4 mg/dL (1.80-2.40); POTASSIUM 3.7 mmol/L (3.5-5.1)
[2021-02-28] MEDS: ALBUTEROL 0.083% 2.5 MG/3 ML INH IH SCH ×2 (18:39→22:23)
[2021-02-28] MEDS: ATORVASTATIN 40 MG TABLET PO SCH (21:21)
[2021-03-01] VITALS (11 sets, daily range): BP systolic 121–167; BP diastolic 62–87
[2021-03-01] MEDS: DEXTROSE 5%-WATER 1,000 ML IV SCH ×3 (00:37→23:07)
[2021-03-01] MEDS: ALBUTEROL 0.083% 2.5 MG/3 ML INH IH SCH ×4 (01:27→22:18)
[2021-03-01 03:52] LABS: BASOPHILS % (AUTO) 0.2 % (0.0-5.0); EOSINOPHILS % (AUTO) 0.2 % (0.0-8.0); LYMPHOCYTES % (AUTO) 5.7 % (21.0-51.0); MEAN CORPUSCULAR HEMOGLOBIN 28.3 pg (27.0-33.0); MEAN CORPUSCULAR VOLUME 94.2 fL (79-99); MONOCYTES % (AUTO) 2.7 % (3.0-13.0); NEUTROPHILS % (AUTO) 90.3 % (40.0-77.0); PLATELET COUNT (AUTO) 486 K/uL (130-400); RED BLOOD CELL COUNT(AUTO) 2.76 MIL/uL (4.50-6.20); RED CELL DISTRIBUTION WIDTH 14.4 % (11.0-15.5); WHITE BLOOD COUNT (AUTO) 28.2 K/uL (4.8-10.8)
[2021-03-01 03:55] LABS: CREATININE 0.7 mg/dL (0.5-1.5); MAGNESIUM 2.2 mg/dL (1.80-2.40); POTASSIUM 3.2 mmol/L (3.5-5.1)
[2021-03-01] MEDS: POTASSIUM CHLORIDE 10% ELIXIR 20 MEQ/15 ML UDCUP PO PRN ×4 (04:00→23:51)
[2021-03-01] MEDS: POTASSIUM CHLORIDE 20MEQ/100ML 100 ML IV PRN (04:01)
[2021-03-01] MEDS: HYDROCORTISONE SOD SUCCINATE 100 MG/2 ML VIAL IV SCH ×3 (05:06→23:05)
[2021-03-01] MEDS: ZOSYN 3.375GM +NS 50ML IV SCH ×3 (05:07→22:58)
[2021-03-01] MEDS: BALSAM PERU/CASTOR OIL 60 GM TUBE TP SCH ×3 (05:07→23:06)
[2021-03-01] MEDS: 0.9%NACL 50ML 50 ML IV SCH ×3 (05:07→23:06)
[2021-03-01] MEDS: INSULIN HUMULIN R 100 UNIT/ML 3ML SQ SCH ×4 (05:35→23:46)
[2021-03-01] MEDS ORDERED: POTASSIUM CHLORIDE 20MEQ/10ML 20 MEQ in DEXTROSE 5%-WATER 1,000 ML IV SCH (08:30)
[2021-03-01] MEDS: DOXYCYCLINE 100MG+NS 250ML IV SCH ×2 (08:48→20:50)
[2021-03-01] MEDS: 0.9% NACL 250ML 250 ML IV SCH ×2 (08:48→20:50)
[2021-03-01] MEDS: ASPIRIN 81MG CHEW TAB PO SCH (08:50)
[2021-03-01] MEDS: PANTOPRAZOLE 40 MG/VIAL IVP SCH (08:50)
[2021-03-01] MEDS: AMIODARONE 200 MG TABLET PO SCH (08:51)
[2021-03-01] MEDS ORDERED: AMLODIPINE 5 MG TAB PO SCH (09:00)
[2021-03-01] MEDS: IRON SUCROSE COMPLEX 300 MG in 0.9%NACL 50ML 50 ML IV SCH (12:13)
[2021-03-01] MEDS: CARVEDILOL 3.125 MG TABLET PO SCH ×2 (12:13→23:45)
[2021-03-01] MEDS: FOLIC ACID 5 MG/ML VIAL IV SCH (12:13)
[2021-03-01] MEDS: LOSARTAN 25 MG TABLET PO SCH (12:14)
[2021-03-01] MEDS: FUROSEMIDE 20MG VIAL IV SCH ×2 (12:14→17:41)
[2021-03-01] MEDS: ENOXAPARIN SODIUM 40 MG/0.4 ML SYRINGE SQ SCH (12:15)
[2021-03-01 20:25] LABS: MAGNESIUM 1.9 mg/dL (1.80-2.40); POTASSIUM 3.5 mmol/L (3.5-5.1)
[2021-03-01] MEDS: MAGNESIUM 2GM PREMIX 50ML 50 ML IV PRN (20:49)
[2021-03-01] MEDS: ATORVASTATIN 40 MG TABLET PO SCH (20:51)
[2021-03-02] VITALS (20 sets, daily range): BP systolic 106–184; BP diastolic 45–73
[2021-03-02] MEDS: ALBUTEROL 0.083% 2.5 MG/3 ML INH IH SCH ×6 (01:51→21:27)
[2021-03-02] MEDS: FUROSEMIDE 20MG VIAL IV SCH (02:05)
[2021-03-02] MEDS: POTASSIUM CHLORIDE 20MEQ/100ML 100 ML IV PRN ×4 (02:25→15:53)
[2021-03-02] MEDS ORDERED: PHARMACY COMMUNICATION MISC SCH (03:00)
[2021-03-02 03:53] LABS: BASOPHILS % (AUTO) 0.2 % (0.0-5.0); HEMATOCRIT 26.6 % (42-54); LYMPHOCYTES % (AUTO) 5.7 % (21.0-51.0); MEAN CORPUSCULAR HEMOGLOBIN 27.8 pg (27.0-33.0); MEAN CORPUSCULAR HGB CONC 29.3 g/dL (32.0-36.0); MEAN CORPUSCULAR VOLUME 94.7 fL (79-99); MONOCYTES % (AUTO) 2.7 % (3.0-13.0); NEUTROPHILS % (AUTO) 89.9 % (40.0-77.0); NUCLEATED RED BLOOD CELLS 0.1 % (0.0-0.19); PLATELET COUNT (AUTO) 459 K/uL (130-400); RED BLOOD CELL COUNT(AUTO) 2.81 MIL/uL (4.50-6.20); RED CELL DISTRIBUTION WIDTH 14.2 % (11.0-15.5); WHITE BLOOD COUNT (AUTO) 25.1 K/uL (4.8-10.8)
[2021-03-02 04:04] LABS: MAGNESIUM 2.3 mg/dL (1.80-2.40)
[2021-03-02] MEDS: POTASSIUM CHLORIDE 10% ELIXIR 20 MEQ/15 ML UDCUP PO PRN ×2 (04:27→21:22)
[2021-03-02] MEDS: BALSAM PERU/CASTOR OIL 60 GM TUBE TP SCH ×3 (06:00→21:17)
[2021-03-02] MEDS: ZOSYN 3.375GM +NS 50ML IV SCH ×3 (06:10→21:22)
[2021-03-02] MEDS: HYDROCORTISONE SOD SUCCINATE 100 MG/2 ML VIAL IV SCH ×3 (06:11→21:22)
[2021-03-02] MEDS: 0.9%NACL 50ML 50 ML IV SCH ×3 (06:11→21:22)
[2021-03-02] MEDS: INSULIN HUMULIN R 100 UNIT/ML 3ML SQ SCH ×3 (06:12→16:30)
[2021-03-02 07:34] LABS: ABG HCO3 34.7 mmol/L (21.0-28.0); ABG OXYGEN SATURATION 99.1 % (95.0-99.0); ABG PCO2 48 mmHg (35-48)
[2021-03-02] MEDS ORDERED: POTASSIUM CHLORIDE 20MEQ/100ML 100 ML IV SCH (08:00)
[2021-03-02] MEDS ORDERED: POTASSIUM CHLORIDE 20 MEQ/100 ML BAG IV SCH (08:00)
[2021-03-02] MEDS: DOXYCYCLINE 100MG+NS 250ML IV SCH ×2 (08:14→21:15)
[2021-03-02] MEDS: PANTOPRAZOLE 40 MG/VIAL IVP SCH (08:14)
[2021-03-02] MEDS: 0.9% NACL 250ML 250 ML IV SCH ×2 (08:15→21:16)
[2021-03-02] MEDS: FOLIC ACID 5 MG/ML VIAL IV SCH (08:18)
[2021-03-02] MEDS: AMIODARONE 200 MG TABLET PO SCH (08:18)
[2021-03-02] MEDS: CARVEDILOL 3.125 MG TABLET PO SCH ×2 (08:18→21:16)
[2021-03-02] MEDS: ENOXAPARIN SODIUM 40 MG/0.4 ML SYRINGE SQ SCH (08:20)
[2021-03-02] MEDS: ASPIRIN 81MG CHEW TAB PO SCH (08:21)
[2021-03-02] MEDS: LOSARTAN 25 MG TABLET PO SCH (08:30)
[2021-03-02] MEDS: DEXTROSE 5%-WATER 1,000 ML IV SCH (10:01)
[2021-03-02] MEDS: IRON SUCROSE COMPLEX 300 MG in 0.9%NACL 50ML 50 ML IV SCH (11:48)
[2021-03-02 12:48] LABS: MAGNESIUM 1.9 mg/dL (1.80-2.40); POTASSIUM 3.6 mmol/L (3.5-5.1)
[2021-03-02] MEDS: MAGNESIUM 2GM PREMIX 50ML 50 ML IV PRN (15:54)
[2021-03-02] MEDS: ATORVASTATIN 40 MG TABLET PO SCH (21:16)
[2021-03-03] VITALS (23 sets, daily range): BP systolic 139–190; BP diastolic 60–81
[2021-03-03] MEDS: INSULIN HUMULIN R 100 UNIT/ML 3ML SQ SCH ×5 (00:57→21:00)
[2021-03-03] MEDS: POTASSIUM CHLORIDE 20MEQ/100ML 100 ML IV PRN (01:00)
[2021-03-03] MEDS: ALBUTEROL 0.083% 2.5 MG/3 ML INH IH SCH ×6 (01:40→22:18)
[2021-03-03] MEDS: DEXTROSE 5%-WATER 1,000 ML IV SCH ×2 (03:02→17:00)
[2021-03-03 03:40] LABS: ABG BASE EXCESS 7.6 mmol/L (-2.0-3.0); ABG HCO3 31.5 mmol/L (21.0-28.0); ABG OXYGEN SATURATION 93.6 % (95.0-99.0); ABG PCO2 42 mmHg (35-48)
[2021-03-03 03:45] LABS: BASOPHILS % (AUTO) 0.1 % (0.0-5.0); EOSINOPHILS % (AUTO) 0.2 % (0.0-8.0); HEMATOCRIT 24.8 % (42-54); LYMPHOCYTES % (AUTO) 7.5 % (21.0-51.0); MEAN CORPUSCULAR HEMOGLOBIN 28.8 pg (27.0-33.0); MEAN CORPUSCULAR HGB CONC 30.2 g/dL (32.0-36.0); MEAN CORPUSCULAR VOLUME 95.4 fL (79-99); MONOCYTES % (AUTO) 3.3 % (3.0-13.0); NEUTROPHILS % (AUTO) 86.7 % (40.0-77.0); NUCLEATED RED BLOOD CELLS 0.3 % (0.0-0.19); PLATELET COUNT (AUTO) 458 K/uL (130-400); RED CELL DISTRIBUTION WIDTH 14.5 % (11.0-15.5); WHITE BLOOD COUNT (AUTO) 19.7 K/uL (4.8-10.8)
[2021-03-03 04:07] LABS: ALBUMIN 1.5 g/dL (3.5-5.0); BILIRUBIN,TOTAL 0.3 mg/dL (0.2-1.0); CREATININE 0.8 mg/dL (0.5-1.5); MAGNESIUM 1.9 mg/dL (1.80-2.40); POTASSIUM 3.8 mmol/L (3.5-5.1); TOTAL PROTEIN, SERUM 5.4 g/dL (6.0-8.3)
[2021-03-03] MEDS: ZOSYN 3.375GM +NS 50ML IV SCH ×3 (06:49→22:05)
[2021-03-03] MEDS: POTASSIUM CHLORIDE 10% ELIXIR 20 MEQ/15 ML UDCUP PO PRN ×2 (06:49→08:41)
[2021-03-03] MEDS: HYDROCORTISONE SOD SUCCINATE 100 MG/2 ML VIAL IV SCH ×3 (06:49→22:05)
[2021-03-03] MEDS: BALSAM PERU/CASTOR OIL 60 GM TUBE TP SCH ×3 (06:50→22:05)
[2021-03-03] MEDS: 0.9%NACL 50ML 50 ML IV SCH ×3 (06:50→22:05)
[2021-03-03] MEDS: DOXYCYCLINE 100MG+NS 250ML IV SCH ×2 (08:40→20:42)
[2021-03-03] MEDS: 0.9% NACL 250ML 250 ML IV SCH ×2 (08:40→20:42)
[2021-03-03] MEDS: PANTOPRAZOLE 40 MG/VIAL IVP SCH (08:41)
[2021-03-03] MEDS: MAGNESIUM 2GM PREMIX 50ML 50 ML IV PRN (08:41)
[2021-03-03] MEDS: LOSARTAN 25 MG TABLET PO SCH (08:42)
[2021-03-03] MEDS: CARVEDILOL 3.125 MG TABLET PO SCH ×2 (08:42→20:42)
[2021-03-03] MEDS: ASPIRIN 81MG CHEW TAB PO SCH (08:42)
[2021-03-03] MEDS: AMIODARONE 200 MG TABLET PO SCH (08:42)
[2021-03-03] MEDS: FOLIC ACID 5 MG/ML VIAL IV SCH (08:42)
[2021-03-03] MEDS: ENOXAPARIN SODIUM 80 MG/0.8 ML SQ SCH ×2 (08:43→20:42)
[2021-03-03] MEDS: ATORVASTATIN 40 MG TABLET PO SCH (20:42)
[2021-03-04] VITALS (25 sets, daily range): BP systolic 139–178; BP diastolic 55–100
[2021-03-04] MEDS: INSULIN HUMULIN R 100 UNIT/ML 3ML SQ SCH ×4 (01:40→16:44)
[2021-03-04] MEDS: ALBUTEROL 0.083% 2.5 MG/3 ML INH IH SCH ×6 (02:26→23:15)
[2021-03-04] MEDS: 0.9%NACL 50ML 50 ML IV SCH ×3 (05:02→22:19)
[2021-03-04] MEDS: ZOSYN 3.375GM +NS 50ML IV SCH ×3 (05:02→22:19)
[2021-03-04] MEDS: DEXTROSE 5%-WATER 1,000 ML IV SCH (05:02)
[2021-03-04] MEDS: HYDROCORTISONE SOD SUCCINATE 100 MG/2 ML VIAL IV SCH ×3 (05:02→21:00)
[2021-03-04 05:16] LABS: BASOPHILS % (AUTO) 0.1 % (0.0-5.0); EOSINOPHILS % (AUTO) 0.1 % (0.0-8.0); HEMATOCRIT 24.9 % (42-54); LYMPHOCYTES % (AUTO) 7.5 % (21.0-51.0); MEAN CORPUSCULAR HEMOGLOBIN 28.1 pg (27.0-33.0); MEAN CORPUSCULAR HGB CONC 30.1 g/dL (32.0-36.0); MEAN CORPUSCULAR VOLUME 93.3 fL (79-99); MONOCYTES % (AUTO) 3.1 % (3.0-13.0); NEUTROPHILS % (AUTO) 87.8 % (40.0-77.0); NUCLEATED RED BLOOD CELLS 0.4 % (0.0-0.19); PLATELET COUNT (AUTO) 469 K/uL (130-400); RED BLOOD CELL COUNT(AUTO) 2.67 MIL/uL (4.50-6.20); RED CELL DISTRIBUTION WIDTH 14.5 % (11.0-15.5); WHITE BLOOD COUNT (AUTO) 16.3 K/uL (4.8-10.8)
[2021-03-04 05:33] LABS: ALBUMIN 1.5 g/dL (3.5-5.0); BILIRUBIN,TOTAL 0.4 mg/dL (0.2-1.0); CREATININE 0.6 mg/dL (0.5-1.5); MAGNESIUM 1.8 mg/dL (1.80-2.40); TOTAL PROTEIN, SERUM 5.4 g/dL (6.0-8.3)
[2021-03-04 05:56] LABS: POTASSIUM 2.9 mmol/L (3.5-5.1)
[2021-03-04] MEDS: POTASSIUM CHLORIDE 20MEQ/100ML 100 ML IV PRN ×2 (06:06→06:49)
[2021-03-04] MEDS: BALSAM PERU/CASTOR OIL 60 GM TUBE TP SCH ×3 (06:48→21:13)
[2021-03-04 09:04] LABS: ABG BASE EXCESS 9.7 mmol/L (-2.0-3.0); ABG OXYGEN SATURATION 84.7 % (95.0-99.0); ABG PCO2 49 mmHg (35-48)
[2021-03-04] MEDS: PANTOPRAZOLE 40 MG/VIAL IVP SCH (09:10)
[2021-03-04] MEDS: 0.9% NACL 250ML 250 ML IV SCH ×2 (09:11→21:08)
[2021-03-04] MEDS: AMIODARONE 200 MG TABLET PO SCH (09:11)
[2021-03-04] MEDS: FOLIC ACID 5 MG/ML VIAL IV SCH (09:11)
[2021-03-04] MEDS: DOXYCYCLINE 100MG+NS 250ML IV SCH ×2 (09:11→21:08)
[2021-03-04] MEDS: ASPIRIN 81MG CHEW TAB PO SCH (09:13)
[2021-03-04] MEDS: CARVEDILOL 3.125 MG TABLET PO SCH ×2 (09:13→21:13)
[2021-03-04] MEDS: POTASSIUM CHLORIDE 10% ELIXIR 20 MEQ/15 ML UDCUP PO PRN ×4 (09:14→15:00)
[2021-03-04] MEDS: ENOXAPARIN SODIUM 80 MG/0.8 ML SQ SCH (09:14)
[2021-03-04] MEDS: LOSARTAN 25 MG TABLET PO SCH (09:16)
[2021-03-04] MEDS: MAGNESIUM 2GM PREMIX 50ML 50 ML IV PRN (09:17)
[2021-03-04] MEDS: HYDRALAZINE 20MG/ML VIAL IV PRN (10:10)
[2021-03-04] MEDS ORDERED: IOHEXOL-350 50ML VIAL IV ONE (12:40)
[2021-03-04] MEDS ORDERED: LORAZEPAM 2 MG/ML 1 ML VIAL IM PRN (18:30)
[2021-03-04] MEDS ORDERED: MORPHINE 2 MG SYG IVP PRN (18:30)
[2021-03-04] MEDS: ATORVASTATIN 40 MG TABLET PO SCH (21:13)
[2021-03-05] VITALS (17 sets, daily range): BP systolic 102–207; BP diastolic 45–88
[2021-03-05] MEDS: ALBUTEROL 0.083% 2.5 MG/3 ML INH IH SCH ×3 (01:22→10:14)
[2021-03-05] MEDS: HYDRALAZINE 20MG/ML VIAL IV PRN (05:43)
[2021-03-05] MEDS: BALSAM PERU/CASTOR OIL 60 GM TUBE TP SCH ×3 (05:44→20:56)
[2021-03-05] MEDS: INSULIN HUMULIN R 100 UNIT/ML 3ML SQ SCH ×3 (06:00→11:44)
[2021-03-05] MEDS: 0.9%NACL 50ML 50 ML IV SCH (06:05)
[2021-03-05] MEDS: ZOSYN 3.375GM +NS 50ML IV SCH (06:05)
[2021-03-05 07:25] LABS: MEAN CORPUSCULAR HEMOGLOBIN 28.3 pg (27.0-33.0); MEAN CORPUSCULAR HGB CONC 30.7 g/dL (32.0-36.0); MEAN CORPUSCULAR VOLUME 92.1 fL (79-99); NUCLEATED RED BLOOD CELLS 0.1 % (0.0-0.19); PLATELET COUNT (AUTO) 625 K/uL (130-400); RED BLOOD CELL COUNT(AUTO) 3.04 MIL/uL (4.50-6.20); RED CELL DISTRIBUTION WIDTH 14.6 % (11.0-15.5); WHITE BLOOD COUNT (AUTO) 20.5 K/uL (4.8-10.8)
[2021-03-05 07:38] LABS: CREATININE 0.8 mg/dL (0.5-1.5); POTASSIUM 3.2 mmol/L (3.5-5.1)
[2021-03-05] MEDS ORDERED: DEXTROSE 5%-WATER 1,000 ML IV SCH (08:00)
[2021-03-05] MEDS: DOXYCYCLINE 100MG+NS 250ML IV SCH (08:26)
[2021-03-05] MEDS: 0.9% NACL 250ML 250 ML IV SCH (08:26)
[2021-03-05 08:32] LABS: LYMPHOCYTES % (MANUAL) 12 % (22-44); MAN.DIFF COMMENT-IMPRESSION MANUAL DIFFERENTIAL; MONOCYTES % (MANUAL) 3 % (2-9); PLATELET MORPHOLOGY COMMENT MARKED INCREASE; SEGMENTED NEUTROPHILS % 85 % (40-70)
[2021-03-05] MEDS: PANTOPRAZOLE 40 MG/VIAL IVP SCH (08:34)
[2021-03-05] MEDS: HYDROCORTISONE SOD SUCCINATE 100 MG/2 ML VIAL IV SCH (08:43)
[2021-03-05] MEDS: FOLIC ACID 5 MG/ML VIAL IV SCH (08:48)
[2021-03-05] MEDS: LOSARTAN 25 MG TABLET PO SCH (08:50)
[2021-03-05] MEDS: AMIODARONE 200 MG TABLET PO SCH (08:50)
[2021-03-05] MEDS: CARVEDILOL 3.125 MG TABLET PO SCH (08:51)
[2021-03-05] MEDS: ASPIRIN 81MG CHEW TAB PO SCH (08:51)
[2021-03-05] MEDS: POTASSIUM CHLORIDE 10% ELIXIR 20 MEQ/15 ML UDCUP PO PRN (11:10)
[2021-03-05] MEDS ORDERED: HALOPERIDOL 1 MG TABLET PO PRN (13:00)
[2021-03-05] MEDS ORDERED: ONDANSETRON 4MG INJ IVP PRN (13:00)
[2021-03-05] MEDS ORDERED: ACETAMINOPHEN 650 MG SUPPOSITORY RC PRN (13:00)
[2021-03-05] MEDS ORDERED: ARTIFICAL TEARS SOL 15 ML OU PRN (13:00)
[2021-03-05] MEDS ORDERED: DEXAMETHASONE SOD PHOSPHATE 4 MG/ML 1ML VIAL IVP PRN (13:00)
[2021-03-05] MEDS ORDERED: SCOPOLAMINE HYDROBROMIDE 1 EACH ADH..PATCH TD SCH (13:00)
[2021-03-05] MEDS ORDERED: LORAZEPAM 2 MG/ML 1 ML VIAL IVP PRN (13:30)
[2021-03-06] VITALS: BP 138/58
[2021-03-06 04:00] VITALS: BP 132/64
[2021-03-06] MEDS: BALSAM PERU/CASTOR OIL 60 GM TUBE TP SCH (05:09)
[2021-03-06 08:29] VITALS: BP 123/42
== END 2021-03-06 08:45 | DRG 853 ==
LOC: EDH 14:39 → EDHIP 19:03 → 4DH 02-18 08:33 → 2DH 02-18 18:57 → 4CH 02-20 09:05 → 2CH 02-21 21:05 → 4CH 03-01 05:42 → 2CH 03-01 15:18 → 2DH 03-02 03:40 → 3DH 03-06 07:39
PROVIDERS: ADMIT Internal Medicine; ATTEND Internal Medicine
PROC: 0S9D0ZZ Drainage of Left Knee Joint, Open Approach (ICD-10-PCS; principal; 2021-02-20 16:07)
PROC: 5A1945Z Respiratory Ventilation, 24-96 Consecutive Hours (ICD-10-PCS; 2021-02-21)
PROC: 5A12012 Performance of Cardiac Output, Single, Manual (ICD-10-PCS; 2021-02-21)
PROC: 0BH17EZ Insertion of Endotracheal Airway into Trachea, Via Natural or Artificial Opening (ICD-10-PCS; 2021-02-21)
PROC: 5A12012 Performance of Cardiac Output, Single, Manual (ICD-10-PCS; 2021-02-23)
PROC: 0BH17EZ Insertion of Endotracheal Airway into Trachea, Via Natural or Artificial Opening (ICD-10-PCS; 2021-02-23)
PROC: 5A1945Z Respiratory Ventilation, 24-96 Consecutive Hours (ICD-10-PCS; 2021-02-23)
PROC: 02HV33Z Insertion of Infusion Device into Superior Vena Cava, Percutaneous Approach (ICD-10-PCS; 2021-02-25)
PROC: 5A09457 Assistance with Respiratory Ventilation, 24-96 Consecutive Hours, Continuous Positive Airway Pressure (ICD-10-PCS; 2021-02-27)
PROC: 5A09457 Assistance with Respiratory Ventilation, 24-96 Consecutive Hours, Continuous Positive Airway Pressure (ICD-10-PCS; 2021-03-02)
PROC: 5A09357 Assistance with Respiratory Ventilation, Less than 24 Consecutive Hours, Continuous Positive Airway Pressure (ICD-10-PCS; 2021-03-05)
DX: A41.50 Gram-negative sepsis, unspecified (principal); L89.153 Pressure ulcer of sacral region, stage 3; I21.A1 Myocardial infarction type 2; J15.1 Pneumonia due to Pseudomonas; J15.6 Pneumonia due to other Gram-negative bacteria; J96.01 Acute respiratory failure with hypoxia; I63.9 Cerebral infarction, unspecified; R65.21 Severe sepsis with septic shock; G92.8 Other toxic encephalopathy; M00.9 Pyogenic arthritis, unspecified; T81.30XA Disruption of wound, unspecified, initial encounter; E44.0 Moderate protein-calorie malnutrition; E87.0 Hyperosmolality and hypernatremia; E87.1 Hypo-osmolality and hyponatremia; G93.1 Anoxic brain damage, not elsewhere classified; I47.2 Ventricular tachycardia; I82.621 Acute embolism and thrombosis of deep veins of right upper extremity; J98.11 Atelectasis; M86.60 Other chronic osteomyelitis, unspecified site; N10 Acute pyelonephritis; N30.01 Acute cystitis with hematuria; D64.9 Anemia, unspecified; E11.51 Type 2 diabetes mellitus with diabetic peripheral angiopathy without gangrene; E66.9 Obesity, unspecified; I11.0 Hypertensive heart disease with heart failure; I25.10 Atherosclerotic heart disease of native coronary artery without angina pectoris; I50.9 Heart failure, unspecified; B95.1 Streptococcus, group B, as the cause of diseases classified elsewhere; B95.4 Other streptococcus as the cause of diseases classified elsewhere; E11.621 Type 2 diabetes mellitus with foot ulcer; E11.69 Type 2 diabetes mellitus with other specified complication; E78.5 Hyperlipidemia, unspecified; E86.0 Dehydration; E87.6 Hypokalemia; H54.8 Legal blindness, as defined in USA; I05.9 Rheumatic mitral valve disease, unspecified; I46.2 Cardiac arrest due to underlying cardiac condition; I48.91 Unspecified atrial fibrillation; L89.152 Pressure ulcer of sacral region, stage 2; L89.329 Pressure ulcer of left buttock, unspecified stage; D75.838 Other thrombocytosis; B96.5 Pseudomonas (aeruginosa) (mallei) (pseudomallei) as the cause of diseases classified elsewhere; L97.529 Non-pressure chronic ulcer of other part of left foot with unspecified severity; M17.12 Unilateral primary osteoarthritis, left knee; Z20.822 Contact with and (suspected) exposure to COVID-19; N19 Unspecified kidney failure; R33.8 Other retention of urine; Z66 Do not resuscitate; Z68.24 Body mass index [BMI] 24.0-24.9, adult; Z74.01 Bed confinement status; Z79.2 Long term (current) use of antibiotics; Z98.1 Arthrodesis status; Z95.5 Presence of coronary angioplasty implant and graft; Z83.3 Family history of diabetes mellitus; T83.018A Breakdown (mechanical) of other urinary catheter, initial encounter; Y73.8 Miscellaneous gastroenterology and urology devices associated with adverse incidents, not elsewhere classified; Y92.89 Other specified places as the place of occurrence of the external cause; Y83.8 Other surgical procedures as the cause of abnormal reaction of the patient, or of later complication, without mention of misadventure at the time of the procedure
CPT/HCPCS: 31500; 36415; 36600; 70450; 70470; 71045; 73562; 73630; 73721; 74018; 76705; 76770; 80048; 80053; 80202; 81001; 82040; 82140; 82435; 82550; 82607; 82746; 82803; 82947; 82948; 83036; 83540; 83550; 83605; 83735; 83874; 84100; 84132; 84134; 84145; 84295; 84484; 84560; 85018; 85025; 85027; 85045; 85378; 85610; 85651; 85730; 86038; 86140; 86850; 86900; 86901; 87040; 87070; 87071; 87076; 87077; 87088; 87186; 87205; 87635; 89051; 89060; 92610; 92950; 93005; 93306; 93926; 93970; 93971; 94002; 94003; 94640; 94660; 94664; 94667; 94668; A4344; A4606; C1751; C1894; C9113; C9803; G0378; J0282; J0330; J0360; J0690; J0692; J0696; J1100; J1650; J1720; J1756; J1815; J1940; J2001; J2060; J2175; J2185; J2250; J2405; J2543; J2704; J2710; J3010; J3370; J3411; J3475; J3480; J3490; J7030; J7050; J7060; J7070; J7120; P9046; P9047; Q9967